=== PATIENT | female | born 1940 | race Caucasian/White ===

== ENCOUNTER 2019-07-10 08:44 | Emergency (ER) | payer MEDICARE, OTHER ==
[~2019-07-10] VITALS: Ht 167.6 cm; Wt 79.5 kg
[2019-07-10 09:01] VITALS: Ht 167.6 cm; Wt 79.5 kg
[2019-07-10] MEDS ORDERED: ULTRAM50 MG PO (09:02)
[2019-07-10] MEDS ORDERED: COREG 3.1253.125 MG PO (09:03)
[2019-07-10] MEDS ORDERED: LISINOPRIL10 MG PO (09:03)
[2019-07-10] MEDS ORDERED: HYDROCODON-ACE1 EAC2 PO (09:44)
[2019-07-10] MEDS ORDERED: DILAUDID4 MG PO (09:54)
[2019-07-10 11:09] VITALS: BP 169/73
== END 2019-07-10 11:10 | disposition home or self-care (01) ==
LOC: D.ER 08:44
DX: R07.89 Other chest pain (principal); W19.XXXA Unspecified fall, initial encounter; Y93.9 Activity, unspecified; Y92.9 Unspecified place or not applicable; I10 Essential (primary) hypertension; I25.10 Atherosclerotic heart disease of native coronary artery without angina pectoris; Z95.1 Presence of aortocoronary bypass graft